=== PATIENT | male | born 1965 | race African-American/Black ===

== ENCOUNTER 2016-07-22 07:45 | Emergency (ER) | payer MEDICAID ==
[~2016-07-22] VITALS: Ht 182.9 cm; Wt 72.6 kg
[~2016-07-22 07:45] MED LIST: BENADRYL25 M3 PO; GENOPTIC O.O1 APPLIC TOPIC; GENTAK5 ML BOTH EYES; HYDROCORTISONE28 G5 TP; IBUPROFEN600 MG PO; NORCO 5-325 TA1 EACH PO
[2016-07-22] MEDS ORDERED: BENADRYL25 MG ORAL (07:56)
[2016-07-22] MEDS ORDERED: IBUPROFEN200 M2 ORAL (07:56)
[2016-07-22] MEDS ORDERED: ALBUTEROL SULF8.5 GM INH (07:56)
--- NOTE | 2016-07-22 08:06 | Emergency Room Report ---
History of Present Illness General Chief Complaint: Upper Extremity Injury Source: Patient Present Illness HPI Patient is a 50-year-old male who presented after having increased pain to his left upper extremity. Patient reported having hit his left hand on a fixed object. He stated that this may have been a fan. He noted increased swelling to his hand. He reported having increased pain. He denied any fever. He reports having up-to-date tetanus shot. Allergies: Coded Allergies: PENICILLINS (Verified Allergy, Severe, Altered Mental Status, 07/22/16) AMOXICILLIN (Verified Allergy, Unknown, 07/23/12) Patient History Reviewed Nursing Documentation: PMH: Agreed, PSxH: Agreed Nursing Documentation-PM Past Medical History: No History, Except For Hx Asthma: Yes Review of Systems All Other Systems: negative except mentioned in HPI Physical Exam Vital Signs Date Time Temp Pulse Resp B/P Pulse Ox O2 Delivery O2 Flow Rate FiO2 07/22/16 07:51 98.2 87 18 131/83 99 Room Air Sp02 EP Interpretation: reviewed, normal General Appearance: normal inspection, well appearing, no apparent distress, alert, GCS 15 Head: atraumatic ENT: normal ENT inspection, hearing grossly normal, normal voice Neck: normal inspection, full range of motion, supple, no bony tend Respiratory: normal inspection, lungs clear, normal breath sounds, no respiratory distress, no retraction, no wheezing Cardiovascular #1: regular rate, rhythm, no edema Gastrointestinal: normal inspection, normal bowel sounds, non tender, soft, no guarding, no hernia Genitourinary: no CVA tenderness Musculoskeletal: normal inspection, back normal, normal range of motion Neurologic: normal inspection, alert, oriented x3, responsive, speech normal Psychiatric: normal inspection, judgement/insight normal, mood/affect normal Skin: other - soft tissue swelling to left hand no erythema, multiple rings present, abrasions Medical Decision Making Diagnostic Impression: Primary Impression: Hand contusion ER Course Patient presented for left hand pain. Differential diagnoses include was noted to cellulitis, fracture, clinched fist injury, osteomyelitis among others. X- ray imaging of the left hand 3 views read by radiology showed normal bony alignment without evident fracture. The rings were removed and the patient was placed in a Eric wrap. The patient started on antibiotics. As there may be some cellulitic component. The patient vehemently denies having a clinched fist injury and states that he hit his hand on a fan. The patient is advised to follow up with primary care doctor in 2 days. Patient is advised to return if any worsening condition or if any changes in status that are concerning. Last Vital Signs Date Time Temp Pulse Resp B/P Pulse Ox O2 Delivery O2 Flow Rate FiO2 07/22/16 07:51 98.2 87 18 131/83 99 Room Air Status: improved Disposition: HOME, SELF-CARE Condition: Stable Scripts Azithromycin* (ZITHROMAX*) 250 Mg Tablet 250 MG ORAL d, #6 TAB 0 Refills Take two tables once daily for 1 day, then one tablet once daily for 4 days. Prov: Federico Bunch 07/22/16 Ibuprofen* (MOTRIN*) 600 Mg Tablet 600 MG ORAL Q8H Y for For Pain, #30 TAB 0 Refills Prov: Federico Bunch 07/22/16 Federico Bunch Jul 22, 2016 08:06
[2016-07-22] MEDS ORDERED: ZITHROMAX250 MG ORAL (08:49)
[2016-07-22] MEDS ORDERED: IBUPROFEN600 MG ORAL (08:49)
--- NOTE | 2016-07-22 08:54 | Diagnostic Imaging Report ---
Indications: 10 pain Technique: Views left hand. Findings: Comparison: None Optimal positioning limits evaluation. The first metacarpal phalangeal joint is moderately subluxed. No fracture, dislocation, joint space widening ... destruction, periosteal reaction , surrounding soft tissue swelling/foreign body/gas, or other acute changes are identified. No significant degenerative or other chronic changes demonstrated. IMPRESSION: Subluxation of the first metacarpal phalangeal joint, etiology and acuity indeterminate. Correlate clinically. Otherwise negative left hand series, as described
[2016-07-22 09:04] VITALS: BP 146/88
== END 2016-07-22 09:09 | disposition home or self-care (01) ==
LOC: EMR 08:10
DX: S60.222A Contusion of left hand, initial encounter (principal); W22.8XXA Striking against or struck by other objects, initial encounter; Y92.9 Unspecified place or not applicable; Z88.0 Allergy status to penicillin; Z87.09 Personal history of other diseases of the respiratory system
CPT/HCPCS: 99283